=== PATIENT | male | born 1960 | race Caucasian/White ===

== ENCOUNTER 2019-08-23 07:35 | Outpatient (CLI) | payer OTHER ==
[2019-08-24] MEDS ORDERED: AVAPRO300 MG PO (13:33)
[2019-08-24] MEDS ORDERED: NORVASC5 MG PO (13:33)
[2019-08-24] MEDS ORDERED: SINGULAIR10 MG PO (13:33)
== END 2019-08-23 07:45 | disposition home or self-care (01) ==
LOC: RAD 07:35
PROVIDERS: ATTEND Surgery
DX: C20 Malignant neoplasm of rectum (principal); R19.4 Change in bowel habit; R19.5 Other fecal abnormalities; R93.5 Abnormal findings on diagnostic imaging of other abdominal regions, including retroperitoneum

== ENCOUNTER → 2019-08-24 12:28 | Outpatient (CLI) | payer OTHER ==
[~2019-08-24 12:28] MED LIST: AVAPRO300 MG PO; NORVASC5 MG PO; SINGULAIR10 MG PO; ULTRACET PO
== END | disposition home or self-care (01) ==
LOC: EKG 12:28
PROVIDERS: ATTEND Surgery
DX: I10 Essential (primary) hypertension (principal)

== ENCOUNTER 2019-08-27 06:03 | Day surgery (SDC) | payer OTHER ==
[~2019-08-27 06:03] MED LIST changes: -ULTRACET PO
[2019-08-27] MEDS ORDERED: ULTRACET PO (11:16)
== END 2019-08-27 17:05 | disposition home or self-care (01) ==
LOC: CIR.AMB 06:03
PROVIDERS: ATTEND Surgery
DX: C20 Malignant neoplasm of rectum (principal)
CPT/HCPCS: 0184T; 45300; 64430

== ENCOUNTER → 2020-07-08 | Day surgery (SDC) | payer OTHER ==
[~2020-07-08] MED LIST changes: +ULTRACET PO
== END | disposition home or self-care (01) ==
LOC: ADM 07-02 12:45 → CIR.AMB 11:11
PROVIDERS: ATTEND Surgery
DX: C20 Malignant neoplasm of rectum (principal); Z20.822 Contact with and (suspected) exposure to COVID-19